=== PATIENT | male | born 1970 | race African-American/Black ===

== ENCOUNTER 2019-10-30 11:17 | Inpatient (IN) ==
[2019-10-30 11:49] LABS: Basophils % 0.5 %; Hematocrit 49.1 % (37.5-50.1); Hemoglobin 15.8 g/dL (12.9-16.9); Lymphocytes # 1.4 K/mcL (0.6-4.6); Lymphocytes % 36.8 %; Mean Corpuscular HGB Conc 32.2 g/dL (31.6-35.5); Mean Corpuscular Hemoglobin 28.2 pg (28.0-33.3); Mean Corpuscular Volume 87.5 fL (83.0-100.0); Mean Platelet Volume 10.2 fL (9.4-12.4); Monocytes # 0.4 K/mcL (0.0-1.3); Monocytes % 9.2 %; Neutrophils # 2.1 K/mcL (1.6-8.9); Platelet Count 199 K/mcL (140-400); Red Blood Count 5.61 M/mcL (4.19-5.50); Red Cell Distribution Width 12.7 % (11.5-14.5); Segmented Neutrophils % 52.5 %; White Blood Count 3.9 K/mcL (4.3-11.1)
[2019-10-30 12:04] LABS: Acetaminophen < 10 mcg/mL (10-20); BUN/Creatinine Ratio 12 (6-26); Blood Urea Nitrogen 10 mg/dL (6-20); Calcium 9.9 mg/dL (8.6-10.3); Carbon Dioxide 24 mEq/L (23-29); Chloride 100 mEq/L (98-107); Ethanol < 10 mg/dL (Less than 10); Glucose 151 mg/dL (70-105); Osmolality,Calculated 282 (280-300); Potassium 3.6 mEq/L (3.5-5.1); Salicylate < 2.5 mg/dL (15.0-30.0); Sodium 135 mEq/L (136-145); eGFR For African Americans > 60 (> 60); eGFR For Non-African Americans > 60 (> 60)
[2019-10-30 12:07] LABS: Bilirubin,Urine Negative (Negative); Blood,Urine Negative (Negative); Clarity,Urine Clear (Clear); Color,Urine Yellow (Yellow); Glucose,Urine (UA) Normal (Normal); Ketones,Urine Negative (Negative); Leukocyte Esterase,Urine Negative (Negative); Nitrite,Urine Negative (Negative); Protein,Urine Negative (Neg-Trace); Specific Gravity,Urine 1.013 (1.010-1.025); Urobilinogen,Urine Normal (Normal)
[2019-10-30 12:16] LABS: Amphetamine Screen,Urine Positive ng/mL (Cutoff=1000); Barbiturate Screen,Urine Negative ng/mL (Cutoff=200); Benzodiazepines Screen,Urine Negative ng/mL (Cutoff=200); Cannabinoid Screen,Urine Positive ng/mL (Cutoff = 50); Cocaine Screen,Urine Positive ng/mL (Cutoff= 300); Opiate Screen,Urine Negative ng/mL (Cutoff=300); Phencyclidine Screen,Urine Negative ng/mL (Cutoff=25)
[2019-10-30] MEDS ORDERED: Nicotine 2 MG GUM BC PRN (13:14)
[2019-10-30] MEDS ORDERED: haloperidoL 5 MG TABLET PO PRN (13:14)
[2019-10-30] MEDS ORDERED: *HR* LORazepam 1 MG TABLET PO PRN (13:14)
[2019-10-30] MEDS ORDERED: *HR* LORazepam 2 MG/ML VIAL IM PRN (13:14)
[2019-10-30] MEDS ORDERED: Haloperidol Lactate 5 MG/ML VIAL IM PRN (13:14)
[2019-10-30] MEDS ORDERED: Mag Hydrox/Al Hydrox/Simeth 30 ML UDC PO PRN (13:14)
[2019-10-30] MEDS ORDERED: MOM Conc 10 ML UD.LIQ PO PRN (13:14)
[2019-10-30] MEDS: Nicotine 14 MG PATCH.TD24 TD SCH (17:06)
[2019-10-30] MEDS: traZODone 50 MG TABLET PO PRN (20:58)
[2019-10-30] MEDS: hydrOXYzine pamoate 25 MG CAPSULE PO PRN (20:58)
[2019-10-31] MEDS: Nicotine 14 MG PATCH.TD24 TD SCH (09:55)
[2019-10-31] MEDS: Vitamin B Complex/Vit C/Vit E 1 EACH TABLET PO SCH (09:55)
[2019-10-31] MEDS: Venlafaxine XR (24 HR) 37.5 MG CAP.ER.24H PO SCH (11:20)
[2019-10-31] MEDS: Acetaminophen 325 MG TABLET PO PRN (15:09)
[2019-10-31] MEDS: traZODone 50 MG TABLET PO PRN (20:03)
[2019-10-31] MEDS: hydrOXYzine pamoate 25 MG CAPSULE PO PRN (20:04)
[2019-11-01] MEDS: Nicotine 14 MG PATCH.TD24 TD SCH (08:50)
[2019-11-01] MEDS: Venlafaxine XR (24 HR) 37.5 MG CAP.ER.24H PO SCH (08:51)
[2019-11-01] MEDS: Vitamin B Complex/Vit C/Vit E 1 EACH TABLET PO SCH (08:51)
[2019-11-01] MEDS: traZODone 50 MG TABLET PO PRN (20:39)
[2019-11-01] MEDS: hydrOXYzine pamoate 25 MG CAPSULE PO PRN (20:39)
[2019-11-01] MEDS: Acetaminophen 325 MG TABLET PO PRN (20:40)
[2019-11-02] MEDS ORDERED: Venlafaxine XR (24 HR) 75 MG CAP.ER.24H PO SCH (09:00)
[2019-11-02] MEDS: Nicotine 14 MG PATCH.TD24 TD SCH (09:27)
[2019-11-02] MEDS: Vitamin B Complex/Vit C/Vit E 1 EACH TABLET PO SCH (09:28)
[2019-11-02 10:11] VITALS: BP 154/87
== END 2019-11-02 15:40 | disposition home or self-care (01) | DRG 776 ==
LOC: EMEROOARM 11:17 → 1ANU 11:17
PROVIDERS: ADMIT Psychiatry & Neurology Psychiatry; ATTEND Psychiatry & Neurology Psychiatry